=== PATIENT | male | born 1975 | race Two or more races ===

== ENCOUNTER 2017-11-22 15:43 | Emergency (ER) | payer SELFPAY ==
[2017-11-22 15:58] VITALS: BMI 25.8
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
[2017-11-22 17:54] VITALS: TEMP 98
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
[2017-11-22 22:23] VITALS: BP 130/83; PULSE 96; RESP 20; O2SAT 97
== END 2017-11-22 22:25 | disposition home or self-care (01) ==
LOC: ED 15:43
DX: S02.2XXA Fracture of nasal bones, initial encounter for closed fracture (principal); S00.83XA Contusion of other part of head, initial encounter; Y08.89XA Assault by other specified means, initial encounter; Y92.410 Unspecified street and highway as the place of occurrence of the external cause; F10.129 Alcohol abuse with intoxication, unspecified